=== PATIENT | male | born 1960 | race Native Hawaiian/Other Pacific Islander ===

== ENCOUNTER 2018-09-06 09:46 | Outpatient (CLI) | payer BC | END 2018-09-06 23:16 | disposition home or self-care (01) | LOC: RAD 09:46 | DX: M25.511 Pain in right shoulder (principal); M25.561 Pain in right knee ==

== ENCOUNTER 2020-10-20 15:32 | Outpatient (CLI) | payer BC | END 2020-10-20 20:07 | disposition home or self-care (01) | LOC: RAD 15:32 | PROVIDERS: ATTEND Nurse Practitioner Family | DX: R22.0 Localized swelling, mass and lump, head (principal) ==